=== PATIENT | male | born 1965 | race African-American/Black ===

== ENCOUNTER 2021-02-10 09:37 | Emergency (ER) | payer OTHER ==
[~2021-02-10] VITALS: Ht 190.5 cm; Wt 145.0 kg
[~2021-02-10 09:37] MED LIST: METF500T16 PO
[2021-02-10] MEDS ORDERED: KETOROLAC 30 MG/ML VIAL. IM ONE (12:15)
[2021-02-10] MEDS ORDERED: ORPHENADRINE CITRATE 60 MG/2 ML VIAL. IM ONE (12:15)
--- NOTE | 2021-02-10 13:41 | PHYS DOC ---
Past Medical History Past Medical History: GERD, Hypertension Past Surgical History: Other Additional Past Surgical Histo: "reflux surgery" Alcohol Use: None Drug Use: None General Adult EDM: Chief Complaint: LOWER BACK PAIN OR INJURY HPI: HPI: Patient is a 55-year-old male who presents to the emergency department for right low back pain that radiates down to his right buttock. He denies any injury or heavy lifting. He reports he has had this pain in the past. He rates his pain 10 out of 10. No treatment prior to arrival. Patient denies loss of bowel or bladder, urinary symptoms, saddle anesthesias. Patient is also reporting a sore throat x2 days. He reports it is worse at night. He reports a white productive cough. He denies fevers, shortness of breath, nausea, vomiting, hemoptysis. Patient is also requesting to be tested for COVID-19. Review of Systems: Review of Systems: 14 body systems of the review of systems have been reviewed. See HPI for pertinent positive and negative responses, otherwise all other systems are negative, nonpertinent or noncontributory Heart Score: C/O Chest Pain: N/A Risk Factors: Risk Factors: DM, Current or recent (<one month) smoker, HTN, HLP, family history of CAD, obesity. Risk Scores: Score 0 - 3: 2.5% MACE over next 6 weeks - Discharge Home Score 4 - 6: 20.3% MACE over next 6 weeks - Admit for Clinical Observation Score 7 - 10: 72.7% MACE over next 6 weeks - Early Invasive Strategies Current Medications: Current Medications Medications (Trade) Dose Ordered Sig/[facility] Start Time Stop Time Status Last Admin Dose Admin Ketorolac Tromethamine (Toradol 30mg Vial) 30 mg 1X ONCE 02/10/21 12:15 02/10/21 12:18 DC 02/10/21 12:27 30 MG Orphenadrine Citrate (Norflex) 60 mg 1X ONCE 02/10/21 12:15 02/10/21 12:18 DC 02/10/21 12:27 60 MG Allergies: Allergies: Allergies Coded Allergies Type Severity Reaction Last Updated Verified No Known Drug Allergies 03/30/13 No Physical Exam: PE: Constitutional: Well developed, well nourished, no acute distress, non-toxic appearance. [] HENT: Normocephalic, atraumatic, bilateral external ears normal, oropharynx moist, erythematous oropharynx, 2+ tonsillar enlargement without exudate, uvula midline, no trismus, no phonation changes no oral exudates, nose normal. [] Eyes: PERRL, EOMI, conjunctiva normal, no discharge. [] Neck: Normal range of motion, no bony spinal cervical tenderness,, no step-offs or deformities, supple, no stridor. [] Cardiovascular:Heart rate regular rhythm, no murmur [] Lungs & Thorax: Bilateral breath sounds clear to auscultation [] Abdomen: Bowel sounds normal, soft, no tenderness, no masses, no pulsatile masses. [] Skin: Warm, dry, no erythema, no rash. [] Back: No bony spinal tenderness,, no obvious deformity, no crepitus right lower paraspinal lumbar tenderness with palpation, positive right straight leg raise. Extremities: No tenderness, no cyanosis, no clubbing, ROM intact, no edema. [] Neurologic: Alert and oriented X 3, normal motor function, normal sensory function, no focal deficits noted. [] Psychologic: Affect normal, judgement normal, mood normal. [] Current Patient Data: Labs: Laboratory Tests Test 02/10/21 12:32 02/10/21 12:42 Group A Streptococcus Rapid Negative SARS-CoV-2 Antigen (Rapid) Negative Current Medications Medications (Trade) Dose Ordered Sig/[facility] Route PRN Reason Start Time Stop Time Status Last Admin Dose Admin Ketorolac Tromethamine (Toradol 30mg Vial) 30 mg 1X ONCE IM 02/10/21 12:15 02/10/21 12:18 DC 02/10/21 12:27 Orphenadrine Citrate (Norflex) 60 mg 1X ONCE IM 02/10/21 12:15 02/10/21 12:18 DC 02/10/21 12:27 Vital Signs: Vital Signs Date Time Temp Pulse Resp B/P (MAP) Pulse Ox O2 Delivery O2 Flow Rate FiO2 02/10/21 11:45 97.8 66 18 179/117 (137) 99 Room Air 97.8 EKG: EKG: [] Radiology/Procedures: Radiology/Procedures: []PROCEDURE: CT LUMBAR SPINE WO CONTRAST Study: CT lumbar spine without contrast INDICATION: Low back pain. COMPARISON: CT abdomen/pelvis 09/23/2014 TECHNIQUE: Axial CT imaging of the lumbar spine performed without the use of intravenous contrast. One or more of the following individualized dose reduction techniques were utilized for this examination: 1. Automated exposure control 2. Adjustment of the mA and/or kV according to patient size 3. Use of iterative reconstruction technique. FINDINGS: No acute fracture or focally aggressive osseous process. Minimal levocurvature with the apex at L3-L4. Degenerative grade 1 anterolisthesis of L4 on L5. Disc space height is maintained. Advanced facet arthrosis bilaterally at L4-L5 with periarticular cystic change and articular surface remodeling. Ligamentum flavum hypertrophy at this level. Disc uncovering at L4-L5 with a superimposed left eccentric disc bulge. Severe central canal stenosis at L4-L5. More pronounced lateral recess stenosis on the left at this level. Neural foraminal stenosis on the left at L4-L5 appears mild. Splenic granulomas. Intrinsically dense focus at the upper pole of the right kidney with the area measuring up to 1.3 cm is incompletely evaluated but most frequently secondary to a hemorrhagic cyst. Note is made that a cyst was seen at this location on a 2016 ultrasound. IMPRESSION: 1. The study is not tailored for complete assessment of stenoses without intrathecal contrast. Described stenoses are estimates. 2. Advanced bilateral facet arthrosis at L4-L5 with resultant grade 1 L4 on L5 anterolisthesis. Left eccentric disc bulge at this level and ligamentum flavum hypertrophy with probable severe central canal stenosis, left more so than right lateral recess stenosis and mild left neural foraminal stenosis. No advanced degenerative changes elsewhere throughout the lumbar spine. Electronically signed by: CARLIE SANCHEZ MD (02/10/2021 2:05 PM) [facility] DICTATED and SIGNED BY: CARLIE SANCHEZ MD DATE: 02/10/21 [id number] 0 Course & Med Decision Making: Course & Med Decision Making Pertinent Labs and Imaging studies reviewed. (See chart for details) [] Patient presents emergency department for multiple complaints including right low back pain that radiates into his buttock. He had a positive straight leg raise. Imaging was performed that was negative for any acute findings but degenerative changes was noted. Patient remains neurovascularly intact. He denies any loss of bowel or bladder saddle anesthesias or numbness or tingling in his extremities. Patient treated with anti-inflammatory medications and muscle relaxers. Patient was also reporting a sore throat. He was tested for strep which was negative. Patient was tested for COVID-19 and it was negative. Patient be discharged home to take ibuprofen or naproxen and he was discharged with a muscle relaxer. I discussed with patient all findings and diagnostic testing as well as the need to follow-up with PCP for further evaluation and treatment or return to the ER if any new or worsening symptoms. Strict return precautions were also discussed at length. Patient voiced understanding and agreement with the plan. Patient is hemodynamically stable at the time of disposition. Dragon Disclaimer: Dragon Disclaimer: This electronic medical record was generated, in whole or in part, using a voice recognition dictation system. Departure Departure Impression: Primary Impression: Back pain Qualified Codes: M54.41 - Lumbago with sciatica, right side; G89.29 - Other chronic pain Additional Impression: Pharyngitis Qualified Codes: J02.9 - Acute pharyngitis, unspecified Disposition: HOME / SELF CARE / HOMELESS Condition: GOOD Referrals: CHRISTA PAUL MD (PCP) Patient Instructions: Back Pain, Adult Additional Instructions: You were seen in the emergency department today for multiple complaints including sore throat and back pain. Your rapid strep test was negative. Your Covid tested and that is negative. CT scan of your lumbar spine showed several areas of degenerative changes and arthritis. You need to follow-up with your primary care provider regarding these findings, I would advise you to contact them tomorrow to set up a follow-up appointment. You can take ibuprofen or na proxen for your pain. You are being discharged home with a muscle relaxer, take this as directed. This medication may cause drowsiness so do not take when you need to be alert, driving a vehicle or with alcohol. For sore throat, you can use warm salt water gargles. Return to the emergency department if your pain worsens or you develop numbness or tingling in your groin or down your legs, loss of bowel or bladder, shortness of breath, chest pain, high fevers refractory to treatment or any new or worsening concerns. Scripts Cyclobenzaprine Hcl (CYCLOBENZAPRINE HCL) 5 Mg Tablet 1 TAB PO TID for 7 Days, #21 TAB 0 Refills Prov: NEETU ABREU APRN 02/10/21 NEETU ABREU APRN Feb 10, 2021 13:41
--- NOTE | 2021-02-10 14:07 | RAD ---
Study: CT lumbar spine without contrast INDICATION: Low back pain. COMPARISON: CT abdomen/pelvis 09/23/2014 TECHNIQUE: Axial CT imaging of the lumbar spine performed without the use of intravenous contrast. One or more of the following individualized dose reduction techniques were utilized for this examinat ion: 1. Automated exposure control 2. Adjustment of the mA and/or kV according to patient size 3. Use of iterative reconstruction technique. FINDINGS: No acute fracture or focally aggressive osseous process. Minimal levocurvature with the apex at L3-L4. Degenerative grade 1 anterolisthesis of L4 on L5. Disc space height is maintained. Advanced facet arthrosis bilaterally at L4-L5 with periarticular cystic c hange and articular surface remodeling. Ligamentum flavum hypertrophy at this level. Disc uncovering at L4-L5 with a superimposed left eccentric disc bulge. Severe central canal stenosis at L4-L5. More pronounced lateral recess stenosis on the left at this level. Neural foraminal stenosis on the left a t L4-L5 appears mild. Splenic granulomas. Intrinsically dense focus at the upper pole of the right kidney with the area juan diego suring up to 1.3 cm is incompletely evaluated but most frequently secondary to a hemorrhagic cyst. No te is made that a cyst was seen at this location on a 2016 ultrasound. IMPRESSION: 1. The study is not tailored for complete assessment of stenoses without intrathecal contrast. Descr ibed stenoses are estimates. 2. Advanced bilateral facet arthrosis at L4-L5 with resultant grade 1 L4 on L5 anterolisthesis. Left eccentric disc bulge at this level and ligamentum flavum hypertrophy with probable severe central ca nal stenosis, left more so than right lateral recess stenosis and mild left neural foraminal stenosis . No advanced degenerative changes elsewhere throughout the lumbar spine. Electronically signed by: CARLIE SANCHEZ MD (02/10/2021 2:05 PM) [facility]
[2021-02-10] MEDS ORDERED: CYCL5TAB PO (14:14)
[2021-02-10 14:40] VITALS: BP 145/100
--- NOTE | 2021-02-11 15:09 | NUR ---
IP: Informed pt of negative covid test. Pt verbalized understanding.
== END 2021-02-10 14:35 | disposition home or self-care (01) ==
LOC: ER 09:37
DX: M54.41 Lumbago with sciatica, right side (principal); G89.29 Other chronic pain; J02.9 Acute pharyngitis, unspecified; K21.9 Gastro-esophageal reflux disease without esophagitis; I10 Essential (primary) hypertension; Z20.822 Contact with and (suspected) exposure to COVID-19
CPT/HCPCS: 72131; 87070; 87426; 87880; 96372; 99284; J1885; J2360; U0003; U0005

== ENCOUNTER → 2021-03-02 | Outpatient (CLI) | payer OTHER ==
[2021-02-10 14:40] VITALS: BP 145/100
[~2021-03-02] MED LIST changes: +CYCL5TAB PO
--- NOTE | 2021-03-02 11:17 | RAD ---
EXAMINATION: Magnetic resonance imaging (MRI) of the lumbar spine without contrast 03/02/2021 9:45 AM HISTORY: Radiculitis TECHNIQUE: Multiplanar multi-weighted MRI of the lumbar spine was performed without intravenous contr ast using the standard lumbar spine protocol. Contrast information: None administered. COMPARISON: CT lumbar spine 02/10/2021 FINDINGS: There is 2 mm anterolisthesis of L4 on L5. Vertebral bodies demonstrate normal signal intensity on al l sequences. There are no compression fractures. The conus medullaris terminates at the level of L1 . The distal spinal cord signal intensity is normal. Disc heights are maintained. Disc desiccation i s identified at L4-L5. Limited views of the abdomen and pelvis show no soft tissue abnormality. The aorta is normal. L1-L2: The disc is normal in configuration. There is no facet arthropathy. There is no neuroforaminal stenosis. There is no spinal canal stenosis. L2-L3: The disc is normal in configuration. There is no facet arthropathy. There is no neuroforaminal stenosis. There is no spinal canal stenosis. L3-L4: The disc is normal in configuration. There is mild left facet arthropathy. There is no neurofo raminal stenosis. There is no spinal canal stenosis. L4-L5: There is a right central disc extrusion. Moderate to severe facet arthropathy ligamentum flavu m infolding. Moderate bilateral neuroforaminal stenosis. Severe right lateral recess stenosis. Severe spinal canal stenosis. L5-S1: Disc is normal in configuration. No significant facet arthropathy. No neuroforaminal or spinal canal stenosis. IMPRESSION: Right central disc extrusion at L4-L5 with moderate to severe facet arthropathy resulting in severe r ight lateral recess stenosis and severe spinal canal stenosis. There is moderate bilateral neuroforam inal stenosis. Electronically signed by: Ana Luisa Tomas MD (03/02/2021 11:14 AM) [id number]
== END ==
LOC: MRI 09:21
PROVIDERS: ATTEND Physical Medicine & Rehabilitation
DX: M48.061 Spinal stenosis, lumbar region without neurogenic claudication (principal); M51.26 Other intervertebral disc displacement, lumbar region; M48.8X6 Other specified spondylopathies, lumbar region
CPT/HCPCS: 72148

== ENCOUNTER → 2021-03-14 | Outpatient (CLI) | payer OTHER ==
[~2021-03-14] MED LIST changes: +AMLO2.5T5 PO; +TRIA50CA3 PO; +cholesterol med
--- NOTE | 2021-03-14 12:50 | PDOC1 ---
INITIAL PAIN CONSULT DATE OF SERVICE: DOS: DATE: 03/14/21 TIME: 12:44 CHIEF COMPLAINT: Chief Complaint: Low back and right lower extremity pain HISTORY OF PRESENT ILLNESS: 55-year-old male presents history of pain low back and right lower extremity pain for about 1 month increasing with activity and movement but not the result of any specific injury or accident that he is aware of. Patient reports is much worse with standing walking changing positions in the right leg across the low back radiating the posterior gluteus posterior lateral thigh lateral anterior thigh anteromedial thigh medial lower leg as well in the lateral posterior aspect of the calf patient reports its constant intermittent intensity but always present changes during the day worse with walking standing radiating the right lower extremity with some fatigability the right leg but no overt motor loss. Patient reports no bowel or bladder incontinence worse with walking standing better with sitting or laying down generally is not awakening from sleep at night patient is using a cane and using it in his left hand ambulate patient is been taking Tylenol with codeine as well as muscle relaxers which help but only very minimally patient has had physical therapy exercises performed with his PMR doctor also trigger point injections in the hip and low back which were helpful but only very temporarily. Patient continues to do stretching strength exercises daily and walking daily as best he can tolerate. Patient has seen his neurosurgeon who is suggesting potential candidacy for surgery but would like him to try more conservative measures first. Patient did have a CT scan of the lumbar spine showing right central disc extrusion at L4-5 with moderate to severe facet arthropathy resulting in severe right lateral recess stenosis and severe spinal canal stenosis moderate bilateral neuroforaminal stenosis. Patient rates her disability rating 0-10 10 being the worst as a 9 with family home responsibilities 10 with recreation occupational activity 7 with social activity 8 with sexual behavior 6 with self-care and 1 with life support activities. Patient reports a loss of motor function with significant fatigability of the right lower extremity with ambulation and changing positions. PAST MEDICAL HISTORY: PMH: Hypertension, arthritis PREVIOUS SURGERIES: Past Surgical Hx: Left shoulder surgery, fundoplication CURRENT MEDICATIONS: Current Meds: Active Scripts Medications Dose Route/Sig Max Daily Dose Days Date Category [cholesterol med] 03/14/21 Reported Triamterene 50 Mg Capsule Unknown Dose PO DAILY 03/14/21 Reported Amlodipine Besylate 2.5 Mg Tablet Unknown Dose PO DAILY 03/14/21 Reported ALLERGIES; Allergies: Coded Allergies: No Known Drug Allergies (Unverified , 03/30/13) FAMILY HISTORY: Family Hx: No major medical problems or conditions that he is aware of SOCIAL HISTORY: Social Hx: Patient is alcohol very occasionally does not smoke says any illegal illicit or recreational drugs is lives with his spouse has 2 children living home lives locally in [place] 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 PHYSICAL EXAM: VS: Blood pressure is 175/117 pulse 76 respirations 18 temperature 98.2 F height is 6 feet 3 inches weight is 343 pounds PE: PHYSICAL EXAMINATION: GENERAL: The patient is awake, alert, oriented, appropriate, very pleasant in demeanor HEENT: Shows normocephalic, atraumatic. Extraocular movements are intact and symmetrical. Oral cavity: Mucous membranes moist and pink. Dentition is intact. NECK: Shows anterior throat supple without palpable lymphadenopathy noted. Swallow reflex symmetrical. CHEST: Shows normal on inspection. Breath sounds are clear bilaterally, distant but no rales or rhonchi. HEART: Shows S1, S2 clear. No murmurs auscultated. ABDOMEN: Soft, nontender, nondistended, obese. No palpable organomegaly is noted. No rebound or guarding demonstrated. BACK: Shows spine grossly in the midline. Normal-appearing cervical lordotic curvature. There is slightly increased thoracic kyphosis, some minor flattening of the lumbar lordotic curvature. Lumbar paraspinous muscles show symmetrical on inspection, on palpation shows some moderate tenderness diffusely throughout the upper, middle and lower distribution of the paraspinous muscles bilaterally and also into the lower thoracic paraspinous musculature, firm and tender, but without specific trigger points, without radiation of pain. The patient has good rotational motion of the lumbar spine, both laterally as well as extension and flexion without significant difficulty. No tenderness over the spinous processes, sacrum or sacroiliac regions. EXTREMITIES: Lower extremities show deep tendon reflexes 1+ in the patellar and tendo calcaneus tendons. Motor exam is 4 on a scale of 5 with right dorsiflexion, extension, quadriceps and hamstring flexion and 5/5 on the left. Peripheral pulses are 1 posterior tibial. No peripheral edema is noted bilaterally. Lower extremities are warm and dry to touch, equal in color and appearance. Straight leg raise noted to be positive on the right about 35 degrees, left side is negative. Gaenslen's and Vipul's maneuvers are negative bilaterally as well. The patient is able to stand, stand on his toes without significant difficulty walks with a slight favoring limp does appear to favor the right lower extremity fairly significantly and again using a cane in his left hand to ambulate. SKIN: Shows warm and dry, good turgor. No edema. No sores, rashes or bruising throughout. IMPRESSION: Impression: 55-year-old male with approximate 1 month history increasing pain low back right lower extremity radicular fashion following an L4-[address] scan lumbar spine as noted Hypertension Arthritis Plan: Options were discussed with the patient clued and conservative measures continued physical therapies and interventional techniques. Patient would like to pursue interventional techniques. We discussed a lumbar epidural steroid injections description as well as anatomical models of the procedure. Patient will wait for preauthorization with insurance provider, once obtained we will have him return for translaminar approach L4-5 lumbar epidural steroid injection with fluoroscopic guidance. In the meantime, patient will continue with stretching strength exercise as well as oral analgesics as currently. VANDA LEIVA MD Mar 14, 2021 12:50
== END | disposition home or self-care (01) ==
LOC: PNCL 10:29
PROVIDERS: ATTEND Anesthesiology
DX: M54.50 Low back pain, unspecified (principal); M79.604 Pain in right leg; I10 Essential (primary) hypertension; M19.90 Unspecified osteoarthritis, unspecified site; Z79.899 Other long term (current) drug therapy
CPT/HCPCS: G0463

== ENCOUNTER → 2021-03-23 | Outpatient (CLI) | payer OTHER ==
[~2021-03-23] MED LIST changes: +ACET1TAB33 PO; +IBUP-1060 PO; +IOHEXOL 180 MG/ML 10 ML VIAL. ONE; +methylPREDNISolone ACETATE 40 MG/ML VIAL. ONE; +methylPREDNISolone ACETATE 80 MG/ML VIAL. ONE
--- NOTE | 2021-03-23 10:58 | PDOC ---
Progress Note - Pain Clinic Date of Service: DOS: DATE: 03/23/21 TIME: 10:55 Diagnosis: Dx: Lumbar radiculopathy with lumbar degenerative disease lumbar spinal stenosis and lumbar herniated disc History or Present Illness: HPI: 55-year-old male complains of pain of pain low back into the right lower extremity posterior gluteus posterior lateral thigh lateral anterior thigh anteromedial thigh medial lower leg worse with walking standing changing positions patient reports is worse with repetitive motions and standing for pr olonged periods but better with sitting or laying down generally does not awaken her from sleep at night patient reports pain is 7-8 on scale 10 but gets better as the day goes on and if he is off of his feet that is patient reports is a 9 on scale 10 is worst 7 on average/and is a 7 today patient scribes aching in the low back and shooting and tight in the leg with some cramping stabbing pain as well on and off in intensity again worse with activity. Patient reports no bowel or bladder incontinence. Physical Exam: VS: Blood pressure is 148/111 pulse 83 respirations 18 temperature 90.3 F height is 6 foot 3 inches weight is 339 pounds PE: PHYSICAL EXAMINATION: GENERAL: The patient is awake, alert, oriented, appropriate, very pleasant in demeanor HEENT: Shows normocephalic, atraumatic. Extraocular movements are intact and symmetrical. Oral cavity: Mucous membranes moist and pink. Dentition is intact. NECK: Shows anterior throat supple without palpable lymphadenopathy noted. Swallow reflex symmetrical. CHEST: Shows normal on inspection. Breath sounds are clear bilaterally. HEART: Shows S1, S2 clear. No murmurs auscultated. ABDOMEN: Soft, nontender, nondistended, obese. No palpable organomegaly is n oted. BACK: Shows spine grossly in the midline. Normal-appearing cervical lordotic curvature. There is increased thoracic kyphosis, some flattening of the lumbar lordotic curvature. Lumbar paraspinous muscles show symmetrical on inspection, on palpation shows some moderate tenderness diffusely throughout the upper, middle and lower distribution of the paraspinous muscles, but without specific trigger points, without radiation of pain. The patient has good rotational motion of the lumbar spine, both laterally as well as extension and flexion without significant difficulty. No tenderness over the spinous processes, sacrum or sacroiliac regions. EXTREMITIES: Lower extremities show deep tendon reflexes 1+ in the patellar and tendo calcaneus tendons. Motor exam is 4 on a scale of 5 with right dorsiflexion, extension, quadriceps and hamstring flexion and 5/5 on the left. Peripheral pulses are 1+ posterior tibial. No peripheral edema is noted bilaterally. Lower extremities are warm and dry to touch, equal in color and appearance. SKIN: Shows warm and dry, good turgor. No edema. No sores, rashes or bruising throughout. Procedure: Procedure: Options discussed with the patient. Patient chart reviews his current medication regimen updated current view of systems updated today as well. We will proceed with a lumbar epidural steroid injection today with fluoroscopic guidance. Risks were discussed including but not limited to: Bleeding, infection, possibility of epidural hematoma and subsequent neurological compromise, dural puncture, headaches, spinal cord and/or nerve damage, side effects of steroid medication, and poor results regarding pain control. Patient understands and wished to proceed. Patient will return to clinic in approximately 2 weeks for follow-up, was counseled as to return appointment, activity level and side effect to be aware of. Medication Injected: Med Injected: Procedure is lumbar epidural steroid injection under local anesthetic using sterile prep and drape at the L4-5 level using C-arm fluoroscopic guidance in both AP and lateral views medications injected is 120 mg Depo-Medrol +10mL preservative-free normal saline and 2 mL contrast- condition at discharge is stable patient tolerated procedure well had no complications. Condition at Discharge: Condition at Discharge: Condition at discharge stable, patient tolerated procedure well and had no complications. VANDA LEIVA MD Mar 23, 2021 10:58
--- NOTE | 2021-03-23 10:59 | PDOC4 ---
Procedure Note: ICD 10 Code: ICD 10 Code: M54.16 M51.36 M4 8.06 Procedure Note: Patient was consented for lumbar epidural steroid injection with fluoroscopic guidance. Risks were discussed including but not limited to: Bleeding, infection, possibility of epidural hematoma and subsequent neurological compromise, dural puncture, headaches, spinal cord and/or nerve damage, side effects of steroid medication, and poor results regarding pain control. Patient understands and wished to proceed. Procedure is lumbar epidural steroid injection under local anesthetic using lizette rile prep and drape at the L4-5 level using C-arm fluoroscopic guidance in both AP and lateral views medications injected is 120 mg Depo-Medrol +10mL preservative-free normal saline and 2 mL contrast- condition at discharge is stable patient tolerated procedure well had no complications. VANDA LEIVA MD Mar 23, 2021 10:59
== END | disposition home or self-care (01) ==
LOC: PNCL 10:21
PROVIDERS: ATTEND Anesthesiology
DX: M51.16 Intervertebral disc disorders with radiculopathy, lumbar region (principal); M48.061 Spinal stenosis, lumbar region without neurogenic claudication; Z79.899 Other long term (current) drug therapy
CPT/HCPCS: 62323; J1030; J1040; Q9965

== ENCOUNTER → 2021-04-06 | Outpatient (CLI) | payer OTHER ==
[~2021-04-06] MED LIST changes: -IOHEXOL 180 MG/ML 10 ML VIAL. ONE; -methylPREDNISolone ACETATE 40 MG/ML VIAL. ONE; -methylPREDNISolone ACETATE 80 MG/ML VIAL. ONE
--- NOTE | 2021-04-06 09:56 | PDOC ---
Progress Note - Pain Clinic Date of Service: DOS: DATE: 04/06/21 TIME: 09:52 Diagnosis: Dx: Lumbar radiculopathy with lumbar degenerative disease lumbar spinal stenosis and lumbar herniated disc History or Present Illness: HPI: 55-year-old male returns for follow-up status post lumbar epidural steroid injection x1. Patient reports about 75% improvement initially for the first week and a half now about 50% improvement overall with pain in the low back and right lower extremity still radiating but not as far down the leg as it was previously when it returned patient reports not only in the lateral thigh anterior thigh medial thigh and medial knee not below the knee patient reports is better with increased activity with greater ease and comfort walking greater distances doing household activities greater exercise as well patient reports as the pain began to return is noticed it is a stronger in the right leg though than it was prior to his injection patient rates his pain as a 7 on scale 10 is worst average in 4 days least over the past week and is for today patient reports much better with sitting resting when he first gets up but the pain is more noticeable in the mornings. Patient scribes as aching dull burning cramping stabbing and shooting in the right leg. Patient reports no bowel or bladder incontinence. Patient continues to do stretching exercises, and taking oral analgesics anti-inflammatory ibuprofen and Tylenol as previously which has been helpful after the pain began to return. Patient reports no bowel or bladder incontinence. Physical Exam: VS: Blood pressure is 141/101 pulse 90 respirations 18 temperature 98.3 F weight is 344 pounds PE: PHYSICAL EXAMINATION: GENERAL: The patient is awake, alert, oriented, appropriate, very pleasant in demeanor HEENT: Shows normocephalic, atraumatic. Extraocular movements are intact and symmetrical. Oral cavity: Mucous membranes moist and pink. Dentition is intact. NECK: Shows anterior throat supple without palpable lymphadenopathy noted. Swallow reflex symmetrical. CHEST: Shows normal on inspection. Breath sounds are clear bilaterally, no rales or rhonchi. HEART: Shows S1, S2 clear. No murmurs auscultated. ABDOMEN: Soft, nontender, nondistended, obese. No palpable organomegaly is noted. BACK: Shows spine grossly in the midline. Normal-appearing cervical lordotic curvature. There is slightly increased thoracic kyphosis, some minor flattening of the lumbar lordotic curvature. Lumbar paraspinous muscles show symmetrical on inspection, on palpation shows some moderate tenderness diffusely throughout the upper, middle and lower distribution of the paraspinous muscles, but without specific trigger points, without radiation of pain. The patient has good rotational motion of the lumbar spine, both laterally as well as extension and flexion without significant difficulty. EXTREMITIES: Lower extremities show deep tendon reflexes 1+ in the patellar and tendo calcaneus tendons. Motor exam is 4 on a scale of 5 with right dors iflexion, extension, quadriceps and hamstring flexion and 5/5 on the left. Peripheral pulses are 1+ posterior tibial. No peripheral edema is noted bilaterally. Lower extremities are warm and dry to touch, equal in color and appearance. SKIN: Shows warm and dry, good turgor. No edema. No sores, rashes or bruising throughout. Procedure: Procedure: Options were discussed with patient. Patient chart was reviewed his current medication regimen updated current review of systems updated today as well. We will preauthorize patient for a second lumbar epidural steroid injection with fluoroscopic guidance. Patient still with persistent L4-5 right-sided lumbar radiculopathy although improved after first injection pain returning now and patient will continue with physical therapy exercises stretching strengthening walking daily as well as oral analgesics as currently. Once approved, will have patient return for translaminar approach L4-5 lumbar epidural steroid injection with fluoroscopic guidance. Medication Injected: Med Injected: None Condition at Discharge: Condition at Discharge: Condition at discharge is stable. VANDA LEIVA MD Apr 06, 2021 09:56
== END ==
LOC: PNCL 09:24
PROVIDERS: ATTEND Anesthesiology
DX: M51.16 Intervertebral disc disorders with radiculopathy, lumbar region (principal); M48.061 Spinal stenosis, lumbar region without neurogenic claudication; G89.29 Other chronic pain
CPT/HCPCS: 99212; G0463

== ENCOUNTER 2021-04-24 06:00 | Emergency (ER) | payer OTHER ==
[~2021-04-24] VITALS: Ht 188 cm; Wt 156.7 kg
[2021-04-24] MEDS ORDERED: HYDR-2868 PO (07:22)
--- NOTE | 2021-04-24 07:23 | ED.ADGEN ---
Past Medical History Past Medical History: GERD, Hypertension Past Surgical History: Other Additional Past Surgical Histo: "reflux surgery" Smoking Status: Never Smoker Alcohol Use: Rarely Drug Use: None General Adult EDM: Chief Complaint: GI PROBLEM HPI: HPI: Patient is a 55 year old male coming to the emergency department for feeling of food impaction. Patient had a history of GERD and a fundal plication. Patient states he has had occasional episodes in the past. Patient states he ate a hamburger around 0345 and then went to lay down. Patient states he felt the pressure in his chest and began to feel anxious. Took his BuSpar without improvement. Patient states his symptoms have resolved since presenting to emergency department but is concerned because his anxiety is still high. P atient denies any chest pressure nausea or vomiting. Patient has no current complaints other than his anxiety. Review of Systems: Review of Systems: All other systems within normal limits except for as noted in the HPI Current Medications: Current Medications Medications (Trade) Dose Ordered Sig/Mago Start Time Stop Time Status Last Admin Dose Admin Lorazepam (Ativan Inj) 1 mg 1X ONCE 04/24/21 07:30 04/24/21 07:31 DC 04/24/21 07:29 1 MG Allergies: Allergies: Allergies Coded Allergies Type Severity Reaction Last Updated Verified No Known Drug Allergies 04/24/21 No Physical Exam: PE: Constitutional: Well developed, well nourished, no acute distress, non-toxic appearance. [] HENT: Normocephalic, atraumatic, bilateral external ears normal, nose normal. [] Eyes: PERRLA, conjunctiva normal, no discharge. [] Neck: No rigidity, supple, no stridor. [] Cardiovascular: Regular rate and rhythm, brisk cap refill [] Lungs & Thorax: Non labored symmetric respirations, no tachypnea or respiratory distress [] Abdomen: Soft, nondistended, no tenderness to palpation. Skin: Warm, dry, no erythema, no rash. [] Back: Unremarkable Extremities: No deformities, range of motion grossly intact, no lower extremity edema [] Neurologic: Alert and oriented X 3, no focal deficits noted. [] Psychologic: Affect normal, judgement normal, mood normal. [] Current Patient Data: Vital Signs: Vital Signs Date Time Temp Pulse Resp B/P (MAP) Pulse Ox O2 Delivery O2 Flow Rate FiO2 04/24/21 06:55 96 16 150/91 (110) 98 Room Air 04/24/21 06:34 97.5 97.5 EKG: EKG: [] Heart Score: C/O Chest Pain: No Risk Factors: Risk Factors: DM, Current or recent (<one month) smoker, HTN, HLP, family history of CAD, obesity. Risk Scores: Score 0 - 3: 2.5% MACE over next 6 weeks - Discharge Home Score 4 - 6: 20.3% MACE over next 6 weeks - Admit for Clinical Observation Score 7 - 10: 72.7% MACE over next 6 weeks - Early Invasive Strategies Radiology/Procedures: Radiology/Procedures: [] Course & Med Decision Making: Course & Med Decision Making . Patient states he has no symptoms of food bolus impaction or GERD at this time. Patient is concerned about his anxiety. Discussed the options of work-up for food impaction but patient states that he does not have any symptoms now. Discussed taking small bites and thoroughly chewing food. Patient given IM lorazepam and instructed to have his pick him up again. Patient states that he can have his pick him up. Discussed that he is not able to drive himself home. Patient agrees to plan Dragon Disclaimer: Dragon Disclaimer: This electronic medical record was generated, in whole or in part, using a voice recognition dictation system. Departure Departure Impression: Primary Impression: Anxiety Disposition: 01 HOME / SELF CARE / HOMELESS Condition: STABLE Referrals: CHRISTA PAUL MD (PCP) Patient Instructions: Anxiety and Panic Attacks Additional Instructions: Make sure to take small bites and chew food thoroughly. Return to emergency department if sensation of food bolus that was not resolving on its own recurs. Scripts Hydralazine Hcl (HYDRALAZINE HCL) 25 Mg Tablet 1 TAB PO TID PRN for ANXIETY for 5 Days, #15 TAB 3 Refills Prov: LUCY TREVINO MD 04/24/21 LUCY TREVINO MD Apr 24, 2021 07:22
[2021-04-24 07:41] VITALS: BP 154/91
== END 2021-04-24 07:42 | disposition home or self-care (01) ==
LOC: ER 06:00
DX: F41.9 Anxiety disorder, unspecified (principal); K21.9 Gastro-esophageal reflux disease without esophagitis; I10 Essential (primary) hypertension
CPT/HCPCS: 96372; 99283; J2060

== ENCOUNTER → 2021-05-23 | Outpatient (CLI) | payer OTHER ==
[2021-04-24 07:41] VITALS: BP 154/91
[~2021-05-23] MED LIST changes: +ATOR40TA59 PO; +BUSP5TAB PO; +HYDR-2868 PO; +MULT-121 PO; +OMEP20TA8 PO; +TRIA1CAP3 PO
[2021-05-23 10:21] LABS: BASO # 0.1 x10^3/uL (0.0-0.2); BASO % 1 % (0-3); EOS # 0.3 x10^3/uL (0.0-0.7); EOS % 4 % (0-3); HEMATOCRIT 45.6 % (39.0-53.0); LYMPH # 1.8 x10^3/uL (1.0-4.8); LYMPH % 21 % (24-48); MEAN CORPUSCULAR HEMOGLOBIN 29 pg (25-35); MEAN CORPUSCULAR HGB CONC 33 g/dL (31-37); MEAN CORPUSCULAR VOLUME 89 fL (79-100); MONO # 0.5 x10^3/uL (0.0-1.1); MONO % 5 % (0-9); NEUT % 69 % (31-73); PLATELET COUNT 233 x10^3/uL (140-400); RED BLOOD COUNT 5.14 x10^6/uL (4.30-5.70); RED CELL DISTRIBUTION WIDTH 14.7 % (11.5-14.5); WHITE BLOOD COUNT 8.7 x10^3/uL (4.0-11.0)
[2021-05-23 10:37] LABS: ALBUMIN 3.9 g/dL (3.4-5.0); ALBUMIN/GLOBULIN RATIO 1.1 (1.0-1.7); CALCIUM 8.6 mg/dL (8.5-10.1); CREATININE 1.1 mg/dL (0.7-1.3); GFR 83.8; POTASSIUM 4.1 mmol/L (3.5-5.1); TOTAL BILIRUBIN 0.7 mg/dL (0.2-1.0); TOTAL PROTEIN 7.5 g/dL (6.4-8.2)
--- NOTE | 2021-05-23 11:00 | EKG ---
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
== END ==
LOC: SURGPAT 11:00
PROVIDERS: ATTEND Neurological Surgery
DX: Z01.818 Encounter for other preprocedural examination (principal); I10 Essential (primary) hypertension; M51.16 Intervertebral disc disorders with radiculopathy, lumbar region; M48.062 Spinal stenosis, lumbar region with neurogenic claudication
CPT/HCPCS: 36415; 80053; 85025; 87641; 93005

== ENCOUNTER 2021-05-30 07:25 | Day surgery (SDC) | payer OTHER ==
[2021-05-25 08:27] VITALS: BP 159/107
--- NOTE | 2021-05-27 19:47 | PREOP HP ---
DATE OF SERVICE: 05/30/2021 HISTORY OF PRESENT ILLNESS: The patient is a pleasant 55-year-old man who is having problems with severe lumbar spinal stenosis at L4-5 along with a right-sided disk herniation at L4-5. He has right radicular symptoms as well as symptoms of stenosis. He has had lumbar epidural steroid injections, which helped him for about a week. He said the pain returned and was just as severe as when the problem started. He has pain with standing and walking. The pain is in his lower back and the right buttock and hip. There is also pain that radiates to the right thigh. He uses a cane for ambulation. CURRENT MEDICATIONS: Ronny Back and Body, triamterene, atorvastatin, omeprazole, Flexeril, ibuprofen. PAST MEDICAL HISTORY: Hypertension. PAST SURGICAL HISTORY: Appendectomy, shoulder surgery. 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 . Does not smoke. Drinks alcohol 1-2 times per month. ALLERGIES: No known drug allergies. REVIEW OF SYSTEMS: A 12-point review of systems was performed and is noncontributory except that mentioned above. PHYSICAL EXAMINATION: GENERAL: Alert, pleasant, in no acute distress. HEENT: Head is normocephalic, atraumatic. SKIN: Warm and dry. MUSCULOSKELETAL: Lumbar paraspinal muscle bulk is normal, restricted range of motion of the lumbar spine, [id number] tenderness at the lower lumbar spine with palpation, normal range of motion of the lower extremities bilaterally. EXTREMITIES: No clubbing, cyanosis or edema. NEUROLOGIC: Alert and oriented x 3, normal recent and remote memory. Strength is 5/5 in the lower extremities except 4/5 right foot dorsiflexion and EHL 4+/5. Sensory is intact to light touch in the lower extremities bilaterally. Reflexes were present and symmetric in the lower extremities bilaterally. Markedly positive straight leg raising on the right, negative straight leg raising on the left. He uses a cane when ambulating. IMAGING: I again reviewed his lumbar MRI scan. There is severe lumbar spinal stenosis at L4-5. Additionally, there is right-sided disk herniation/extrusion combined with moderate to severe facet arthropathy at that level. ASSESSMENT AND PLAN: My feeling at this point is that he should have a lumbar microsurgery at L4-5 on the right. He has weakness in his right foot and dorsiflexion of EHL. He has markedly positive straight leg raising. Epidural steroid injections gave no significant relief. He has not improved over time. I spoke with him about the surgery, which should be lumbar microsurgery to perform a right direct laminectomy combined with lumbar microdiskectomy at L4-5 on the right. We discussed surgical risk. We spoke about the expected postoperative course. He understands and would like to proceed. KATHARINE/DELPHINE DR: Bertha TID: [id number]
[~2021-05-30] VITALS: Ht 188 cm; Wt 150.0 kg
[~2021-05-30 07:25] MED LIST changes: +BUPIVACAINE-EPI 0.5% 30 ML VIAL KIT. ONE; +DEXAMETHASONE SOD PHOS 4 MG/ML VIAL ONE; +GELATIN SPONGE SIZE 100. ONE; +GLYCOPYRROLATE 1 MG/5 ML VIAL. ONE; +HYDROmorphone 2 MG/ML INJ. IVP PRN; +IV RINGERS,LACTATED 1000ML 1,000 ML IV SCH; +KETOROLAC 60 MG/2 ML VIAL. ONE; +LIDOCAINE 2% PF 5 ML VIAL. ONE; +MORPHINE SULFATE 2 MG/ML INJ. IVP PRN; +ONDANSETRON PF 4 MG/2 ML VIAL. ONE; +PHENYLEPHRINE 10 MG/ML VIAL. ONE; +PHENYLEPHRINE in 0.9% NACL PF 1 MG/10 ML SYRINGE. IV ONE; +PROCHLORPERAZINE 10 MG/2 ML VIAL. IVP PRN; +PROPOFOL 10 MG/ML (20ML) VIAL. IV ONE; +PROPOFOL 50 ML IV ONE; +REMIFENTANIL 2 MG VIAL. IV ONE; +ROCURONIUM 50 MG/5 ML VIAL. ONE; +SUCCINYLCHOLINE 200 MG/10 ML VIAL. ONE; +THROMBIN TOPICAL 20,000 UNIT SPRAY.SYRN KIT TP ONE; +ceFAZolin SODIUM 1 GM in IV NORMAL SALINE 1000ML BAG 1,000 ML IRR ONE; +ceFAZolin SODIUM 3 GM in IV DEXTROSE 5% 100ML 100 ML IV PRN; +ePHEDrine PF IN SALINE 50 MG/10 ML SYRINGE. IV ONE; +fentaNYL PF VIAL 100 MCG/2 ML VIAL IVP PRN; +fentaNYL PF VIAL 100 MCG/2 ML VIAL ONE
[2021-05-30] MEDS ORDERED: DESFLURANE > 120 MINUTES IH ONE (07:28)
[2021-05-30] MEDS ORDERED: FAMOTIDINE 20 MG/2 ML VIAL ONE (07:29)
[2021-05-30] MEDS ORDERED: PROPOFOL 10 MG/ML (20ML) VIAL. IV ONE (07:31)
[2021-05-30 08:03] VITALS: BP 148/86
[2021-05-30] MEDS ORDERED: NEOSTIGMINE METHYLSULFATE 5 MG/5 ML SYRINGE. ONE (08:12)
[2021-05-30] MEDS ORDERED: GLYCOPYRROLATE 1 MG/5 ML VIAL. ONE (08:41)
[2021-05-30] MEDS ORDERED: REMIFENTANIL 1 MG VIAL. IV ONE (09:04)
[2021-05-30] MEDS ORDERED: LIDOCAINE 2% PF 5 ML VIAL. ONE (09:12)
[2021-05-30] MEDS ORDERED: DOCU-109 PO (12:31)
[2021-05-30] MEDS ORDERED: METH-562 PO (12:31)
[2021-05-30] MEDS ORDERED: HYDR-2761 PO (12:31)
--- NOTE | 2021-05-30 12:32 | DISCH ---
DISCHARGE INSTRUCTIONS Condition on Discharge Condition on Discharge: Stable Activity After Discharge Activity Instructions for Disc: Activity as tolerated, Avoid exertion Other activity instructions: no driving for a week Bathing Instructions: Shower-keep dressing dry, No Tub Bath until see Lifting Instructions after Dis: No heavy lifting, No pulling or pushing, Do not lift >10 pounds Diet after Discharge Additional Diet Restrictions: resume home diet Wound Incision Care Wound/Incision Care: Ice to area for comfort Other wound/incision instructi: may remove dressing in 48 hours if dry, no soaking Contacting the after DC Call your doctor for: Concerns you may have Follow-Up Follow up with: Dr. Laureano's nurse in 2 weeks [phone] KALA LAUREANO MD May 30, 2021 12:32
[2021-05-30] MEDS ORDERED: HYDROcodone/APAP 5/325MG 1 TAB TABLET PO ONE (13:30)
[2021-05-30 13:48] VITALS: BP 107/65
--- NOTE | 2021-06-02 19:07 | PATHOLOGY ---
[facility] Accession Number: [id number] . 01 Material submitted: . vertebral column - LUMBAR DISC AND DECOMPRESSION . 01 Clinical history: . LUMBAR STENOSIS, HERNIATED DISC WITH RADICULOPATHY LUMBAR LAMINECTOMY, LUMBAR MICRODISCECTOMY L4-5 . 02 Diagnosis: Bone and soft tissue "L4-L5", excision: - Reactive/degenerative changes of fibrocartilage and hyaline cartilage. - Fragments of reactive bone. - Negative for malignancy. (ML[facility]; 06/01/2021) P 06/01/2021 1346 Local . 02 Electronically signed: . Veronica Wheat MD, Pathologist NPI- [id number] . 01 Gross description: . The specimen is received in formalin, labeled "Tk Ng, lumbar disc and decompression". Received are multiple segments of pale alvarado to pink-alvarado fibrous tissue admixed with fragments of possible gritty bone measuring 3.0 x 3.0 x 1.0 cm in aggregate dimensions. The specimen is submitted representatively in cassette A1, following light decalcification. ([facility]; 05/30/2021) NRI/NRI 05/30/2021 1712 Local . 02 Pathologist provided ICD-10: M51.36 . 02 CPT . 823899, [id number] Specimen Comment: A courtesy copy of this report has been sent to [phone], [phone] Specimen Comment: [id number] Specimen Comment: Report sent to / DR PAUL Specimen Comment: A duplicate report has been generated due to demographic updates. Performed at: [address] [facility] [address] [place] [address] [address], [place], [place] [id number] MD Matthias Miles MD Phone: [phone] Performed at: [address] [id number] MD Omar Lopez MD Phone: [phone]
--- NOTE | 2021-06-03 18:34 | OP ---
DATE OF SURGERY: 05/30/2021 PREOPERATIVE DIAGNOSIS: Lumbar spinal stenosis with right lumbar radiculopathy, L4-L5. POSTOPERATIVE DIAGNOSIS: Lumbar spinal stenosis with right lumbar radiculopathy, L4-L5. OPERATION PERFORMED: Right direct laminectomy with decompression of dura and nerve root, L4-5. The operation was done with EMG monitoring, SSEP monitoring, fluoroscopy, microscopic dissection. SURGEON: Jose Maria Celaya M.D. SUPERVISOR BOAT OUTFITTING: NANI Potter; assisted with the surgery. She assisted with the exposure, the microdecompression as well as the closure. OPERATIVE INDICATIONS: The patient is a pleasant 55-year-old man who developed intractable back and right leg pain, which failed conservative measures including epidural steroid injections. On imaging studies, he had the above-mentioned findings. I recommended lumbar microsurgery. He understood the surgery as well as the risks, and he wished to go ahead. DESCRIPTION OF PROCEDURE: Following general endotracheal anesthesia, the patient was positioned prone on the Leonides table. Lumbar region prepped and draped in the standard fashion. DUSTY hose and AV impulse boots were applied for DVT prophylaxis. The microscope was draped, fluoroscopy was draped and brought into field. Monitoring was established. Ancef 3 grams was given less than one hour prior to initiation of surgery. Using fluoroscopic guidance, a midline incision was made directly over the L4-5 interspace. I dissected down through skin and subcutaneous tissue, reflected the paraspinal muscles and placed a Walton microdisk retractor, brought in the microscope. Using high speed air drill, I burred down a hemilaminotomy and worked toward the midline, removing the fat, which was somewhat tenacious from the midline. Then working laterally, I drilled a partial foraminotomy and I grasped and peeled away thickened ligamentum flavum, decompressing the dura and the exiting root. I gently retracted the dura medially. There was hard disc and a tiny amount of softer disc. I did incise the annulus and I performed a discectomy as I could with pituitaries. The majority of the compression; however, was posteriorly from the overlying facet and thickened ligament. The nerve at this point was very free throughout its course. I irrigated copiously with antibiotic solution. I then assured myself of perfect hemostasis. I removed the retractor, obtained hemostasis in the muscle and I closed the wound in layers with absorbable suture. The skin was closed with 4-0 subcuticular stitch. I felt the surgery went very well. KIM/DOMEINCA/SHAE DR: Harjit TID: [id number] MTDD
== END 2021-05-30 15:00 | disposition home or self-care (01) ==
LOC: SURG 07:25
PROVIDERS: ATTEND Neurological Surgery
DX: M48.062 Spinal stenosis, lumbar region with neurogenic claudication (principal); M51.16 Intervertebral disc disorders with radiculopathy, lumbar region; I10 Essential (primary) hypertension; E78.00 Pure hypercholesterolemia, unspecified; E66.9 Obesity, unspecified; M19.90 Unspecified osteoarthritis, unspecified site; F41.9 Anxiety disorder, unspecified; Z79.899 Other long term (current) drug therapy; Z72.89 Other problems related to lifestyle; Z98.890 Other specified postprocedural states
CPT/HCPCS: 63047; 88304; 88311; 97116; 97162; 97530; A4364; A4930; A6254; A6257; A6258; J0330; J0690; J1100; J1885; J2370; J2405; J2704; J2710; J3010; J3490; J7030; 76000; A4222